=== PATIENT | male | born 1955 | race Caucasian/White ===

== ENCOUNTER 2018-04-04 15:23 | Inpatient (IN) | payer OTHER ==
[~2018-04-04] VITALS: Ht 177.8 cm; Wt 99.6 kg
--- NOTE | ~2018-04-04 | CON ---
[place], [place] REPORT OF CONSULTATION NAME: BRUCE CARLISLE UNIT #: [id number] ROOM: 531 DOCTOR: DONNA BALES MD BIRTHDATE: [birth year] DOS: 04/06/2018 HISTORY OF PRESENT ILLNESS: A 62-year-old patient who has presented with lower GI bleed for past 2 days and diarrhea, undergone investigation and evaluation. At the time of admission, white blood cell 10, H and H of 14 and 42, differential within normal limit. INR 1.0. Comprehensive metabolic panel: Glucose of 352. GFR greater than 60. Electrolytes balance, liver function tests within normal limit. His H and H did not compromise much. His stool studies negative for ova and parasites, stool culture was pending and the latest CBC; H and H of 13.4 and 39.9. PAST MEDICAL HISTORY: Associated with hyperlipidemia, systemic hypertension and type 2 diabetes mellitus. PAST SURGICAL HISTORY: None. SOCIAL HISTORY: Nonalcohol consumer, stopped smoking decades ago. FAMILY HISTORY: Noncontributory. ALLERGIES: No known medications. MEDICATIONS: List was reviewed. REVIEW OF SYSTEMS: HEENT: Denies double vision, blurred vision. RESPIRATORY: Denies acute shortness of breath. CARDIOVASCULAR: Denies acute chest pain. DIGESTIVE SYSTEM: Abdominal cramps, diarrhea, blood in the stool. PHYSICAL EXAMINATION: VITAL SIGNS: Stable. HEENT: Head normocephalic, nontraumatic. Eyes: Pupils round and reactive. Mouth and buccal mucosa benign. NECK: Supple, no thyromegaly, no cervical lymphadenopathy. CHEST: Symmetric anatomy, equal expansion. No wheeze, no rhonchi. HEART: Normal sinus rhythm, no gallop, no murmur. ABDOMEN: Obese, soft. Large ventral hernia upon exertion was identified. Bowel sounds present. No hepato-organomegaly. EXTREMITIES: No cyanosis, no pedal edema. NEUROLOGIC: Alert, oriented to time, place, person. Sensory, motor intact. Cranial nerves 2-12 intact. IMPRESSION: Lower gastrointestinal bleed. The first time colonoscopy on this admission and etiologies to be ruled out, hemorrhoidal versus colorectal carcinoma versus diverticular bleed. The patient on no anticoagulant and no anti-platelets. We will proceed with the workup. OTHER ADJUNCTIVE DIAGNOSES: As outlined in paragraph of past medical, surgical history. [place], [place] REPORT OF CONSULTATION NAME: BRUCE CARLISLE UNIT #: [id number] ROOM: 531 DOCTOR: DONNA BALES MD BIRTHDATE: [birth year] DONNA BALES MD CM:CONSTR:REPORT OF CONSULTATION 1116 04/20/18 1056 interface
--- NOTE | ~2018-04-04 | O ---
[place], [place] OPERATIVE NOTE NAME: BRUCE CARLISLE UNIT #: [id number] ROOM: 531 DOCTOR: AMAIRANI JENKINS,DONNA BIRTHDATE: [birth year] DOS: 04/06/2018 INDICATIONS: This gentleman is 62 years old, who has presented with lower GI bleed, undergoing investigation. PROCEDURE: Today's procedure part of investigation is colonoscopy. PREMEDICATION: Propofol. SCOPE: Olympus forward-viewing colonoscope 10L video. REPORT: After putting the patient in left lateral position and application of lubricant to rectal pouch and digital examination, scope was introduced. Thereafter, under direct visualization, advanced through the length of colon without difficulty. Evidence of moderate diverticulosis in sigmoid colon was identified. Base of the cecum explored, appendiceal orifice identified, and ileocecal valve was defined. Scope was gradually withdrawn back to the sigmoid area. Air was suctioned out. The patient was extubated, tolerated the procedure well. IMPRESSION: Diverticulosis, possible diverticular bleed. Retrospectively, we find out that the patient has been on ibuprofen 800 mg and the patient has been on aspirin by 81 mg daily and presence of both above medication could have predisposed him to possibility of diverticular bleed. PLAN AND DISCUSSION: Supportive management otherwise withholding aspirin and ibuprofen for 1 week and high fiber diet. Activity ad [place]. The patient can be discharged and followed up as outpatient. DONNA BALES MD CM:OPRECORD:OPERATIVE NOTE 1116 [id number] DONNA BALES MD 04/06/18 1253 interface
[~2018-04-04 15:23] MED LIST: GLYBURIDE5 MG PO; GOOD SENSE ASPI81 M1 PO; HUMALOG100 UNIT/2 SQ; IBU800 M1 PO; LEVOFLOXACIN500 MG PO; LISINOPRIL40 MG PO; METFORMIN1000 MG PO; MOTRIN800 MG PO; SIMVASTATIN40 MG PO; VITAMIN D5000 I3 PO
[2018-04-04 15:37] VITALS: BP 148/78
[2018-04-04 15:45] LABS: BASO % 0.4 % (0.0-1.0); EOS # 0.2 10*3/uL (0.0-0.4); EOS % 1.9 % (1.0-4.0); HEMATOCRIT 42.6 % (42.0-52.0); HEMOGLOBIN 14.7 g/dl (14.0-18.0); LYMPH # 2.6 10*3/uL (1.3-4.4); LYMPH % 25.3 % (27.0-41.0); MEAN CELL VOLUME 83.4 fl (80.0-94.0); MEAN CORPUSCULAR HGB 28.8 pg (27.0-31.0); MEAN CORPUSCULAR HGB CONC 34.5 g/dl (33.0-37.0); MEAN PLATELET VOLUME 9.9 fl (9.6-12.3); MONO # 0.9 10*3/uL (0.1-1.0); MONO % 8.8 % (3.0-9.0); NEUT # 6.4 10*3/uL (2.3-7.9); NEUT % 63.1 % (47.0-73.0); PLATELET COUNT AUTOMATED 231 10*3/uL (130-400); RED BLOOD COUNT 5.11 10*6/uL (4.50-5.90); RED CELL DISTRI WIDTH 12.7 % (0-14.5); WHITE BLOOD COUNT 10.2 10*3/uL (4.8-10.8)
[2018-04-04 15:54] LABS: ACT PARTIAL THROMBO TIME 24.3 SECONDS (20.8-31.5)
[2018-04-04 15:59] LABS: ALBUMIN 3.4 gm/dl (3.1-4.5); ALKALINE PHOSPHATASE 78 U/L (45-117); BUN 14 mg/dl (7-24); CHLORIDE 100 mmol/L (98-107); CREATININE 0.97 mg/dL (0.70-1.30); SGOT/AST 34 IU/L (3-35); SGPT/ALT 55 U/L (12-78); SODIUM 136 mmol/L (136-145); TOTAL PROTEIN 7.5 gm/dL (6.4-8.2)
[2018-04-04 20:00] VITALS: BP 142/79
[2018-04-05] VITALS: BP 128/70
[2018-04-05 06:22] LABS: BASO % 0.4 % (0.0-1.0); EOS # 0.2 10*3/uL (0.0-0.4); EOS % 2.4 % (1.0-4.0); HEMOGLOBIN 14.3 g/dl (14.0-18.0); LYMPH # 2.6 10*3/uL (1.3-4.4); LYMPH % 31.9 % (27.0-41.0); MEAN CELL VOLUME 84.7 fl (80.0-94.0); MEAN CORPUSCULAR HGB 28.8 pg (27.0-31.0); MEAN PLATELET VOLUME 10.2 fl (9.6-12.3); MONO # 0.7 10*3/uL (0.1-1.0); MONO % 8.2 % (3.0-9.0); NEUT # 4.6 10*3/uL (2.3-7.9); NEUT % 56.7 % (47.0-73.0); PLATELET COUNT AUTOMATED 209 10*3/uL (130-400); RED BLOOD COUNT 4.96 10*6/uL (4.50-5.90); WHITE BLOOD COUNT 8.2 10*3/uL (4.8-10.8)
[2018-04-05 06:47] LABS: ACT PARTIAL THROMBO TIME 24.8 SECONDS (20.8-31.5)
[2018-04-05 06:59] LABS: BUN 11 mg/dl (7-24); CHLORIDE 104 mmol/L (98-107); CHOLESTEROL 228 mg/dL (<200); CREATININE 0.85 mg/dL (0.70-1.30); FREE T4 0.95 ng/dl (0.76-1.46); HDL CHOLESTEROL 27 mg/dl (40-60); LDL CHOLESTEROL 123 mg/dL (9-159); PHOSPHOROUS 3.6 mg/dL (2.5-4.9); SODIUM 139 mmol/L (136-145); TRIGLYCERIDES 390 mg/dl (<150); VLDL CHOLESTEROL 78 mg/dL (6-40)
[2018-04-05 07:31] LABS: VITAMIN D, 25-HYDROXY 11.7 ng/mL (30-100)
[2018-04-05 08:00] VITALS: BP 142/88; BP 164/91
[2018-04-05 12:00] VITALS: BP 145/77
[2018-04-05 16:00] VITALS: BP 136/73
[2018-04-05 20:00] VITALS: BP 149/80
[2018-04-06] VITALS (8 sets, daily range): BP systolic 118–144; BP diastolic 64–83
[2018-04-06 06:45] LABS: BASO % 0.3 % (0.0-1.0); EOS # 0.2 10*3/uL (0.0-0.4); EOS % 1.8 % (1.0-4.0); HEMATOCRIT 39.9 % (42.0-52.0); HEMOGLOBIN 13.4 g/dl (14.0-18.0); LYMPH # 2.8 10*3/uL (1.3-4.4); LYMPH % 32.2 % (27.0-41.0); MEAN CELL VOLUME 85.6 fl (80.0-94.0); MEAN CORPUSCULAR HGB 28.8 pg (27.0-31.0); MEAN CORPUSCULAR HGB CONC 33.6 g/dl (33.0-37.0); MEAN PLATELET VOLUME 10.3 fl (9.6-12.3); MONO # 0.8 10*3/uL (0.1-1.0); MONO % 8.7 % (3.0-9.0); NEUT # 4.9 10*3/uL (2.3-7.9); NEUT % 56.7 % (47.0-73.0); PLATELET COUNT AUTOMATED 213 10*3/uL (130-400); RED BLOOD COUNT 4.66 10*6/uL (4.50-5.90); RED CELL DISTRI WIDTH 13.2 % (0-14.5); WHITE BLOOD COUNT 8.7 10*3/uL (4.8-10.8)
[2018-04-06 07:03] LABS: BUN 8 mg/dl (7-24); CHLORIDE 107 mmol/L (98-107); CREATININE 0.76 mg/dL (0.70-1.30); POTASSIUM 3.8 mmol/L (3.5-5.1); SODIUM 140 mmol/L (136-145)
[2018-04-06] MEDS ORDERED: ATORVASTATIN CA40 M1 PO (15:47)
[2018-04-06] MEDS ORDERED: Lantus SC (15:47)
[2018-04-06] MEDS ORDERED: Humalog SQ (15:47)
== END 2018-04-06 16:58 | disposition home or self-care (01) | DRG 379 ==
LOC: 5E 15:23
PROVIDERS: Student in an Organized Health Care Education/Training Program; ADMIT Internal Medicine
PROC: 0DJD8ZZ Inspection of Lower Intestinal Tract, Via Natural or Artificial Opening Endoscopic (ICD-10-PCS; principal; 2018-04-06)
DX: K92.2 Gastrointestinal hemorrhage, unspecified (principal); E11.65 Type 2 diabetes mellitus with hyperglycemia; E78.5 Hyperlipidemia, unspecified; I10 Essential (primary) hypertension; K57.30 Diverticulosis of large intestine without perforation or abscess without bleeding; E55.9 Vitamin D deficiency, unspecified; E78.00 Pure hypercholesterolemia, unspecified; Z87.891 Personal history of nicotine dependence; Z82.0 Family history of epilepsy and other diseases of the nervous system; Z82.49 Family history of ischemic heart disease and other diseases of the circulatory system; Z80.9 Family history of malignant neoplasm, unspecified; Z79.899 Other long term (current) drug therapy

== ENCOUNTER → 2020-04-06 | Outpatient (CLI) | payer OTHER ==
[~2020-04-06] MED LIST changes: +ATORVASTATIN CA40 M1 PO; +Humalog SQ; +Lantus SC
== END | disposition home or self-care (01) ==
LOC: COVID19 10:50
PROVIDERS: ATTEND Internal Medicine
DX: Z20.822 Contact with and (suspected) exposure to COVID-19 (principal)

== ENCOUNTER → 2023-04-27 | Outpatient (CLI) | payer OTHER | END | disposition home or self-care (01) | LOC: US 08:23 | PROVIDERS: ATTEND Student in an Organized Health Care Education/Training Program | DX: Z13.6 Encounter for screening for cardiovascular disorders (principal); I10 Essential (primary) hypertension; E11.9 Type 2 diabetes mellitus without complications ==